=== PATIENT | female | born 1965 | race African-American/Black ===

== ENCOUNTER 2017-10-21 13:33 | Emergency (ER) | payer MEDICAID ==
[~2017-10-21] VITALS: Ht 165.1 cm; Wt 98.0 kg
[~2017-10-21 13:33] MED LIST: ASCO500C15; BISA5TAB; DOCU-138; FERR1TAB51; OMEP20CA4
[2017-10-21] MEDS ORDERED: KETOROLAC 60MG/2ML VIAL IM ONE (16:30)
[2017-10-21 17:20] VITALS: BP 147/78
== END 2017-10-21 17:30 | disposition home or self-care (01) ==
LOC: ER 15:25
DX: G89.29 Other chronic pain (principal); M25.511 Pain in right shoulder; M25.512 Pain in left shoulder
CPT/HCPCS: 96372; 99283; J1885

== ENCOUNTER 2022-05-02 22:08 | Emergency (ER) | payer MEDICAID ==
[~2022-05-02] VITALS: Ht 165.1 cm; Wt 80.8 kg
[2022-05-03 00:44] LABS: BASOPHILS % 0.7 % (0.0-2.0); EOSINOPHILS % 2.9 % (0.0-5.0); HEMATOCRIT. 34.6 % (36.0-48.0); HEMOGLOBIN. 11.5 g/dL (12.0-16.0); LYMPHOCYTES % 31.8 % (20.0-50.0); MEAN CORPUSCULAR VOLUME 90.2 fL (81.0-99.0); MEAN PLATELET VOLUME 8.3 fl (7.4-10.4); MONOCYTES % 6.1 % (2.0-8.0); NEUTROPHILS % 58.5 % (40.0-76.0); PLATELET 203 x1000/uL (130-400); RED BLOOD CELL COUNT 3.84 mill/uL (4.2-5.4); RED CELL DISTRIBUTION WIDTH 13.5 % (11.6-14.6)
[2022-05-03 01:00] LABS: CHLORIDE 110 mEq/L (98-107)
[2022-05-03] MEDS ORDERED: GABA300C MT (01:14)
[2022-05-03 02:58] VITALS: BP 112/75
== END 2022-05-03 02:58 | disposition home or self-care (01) ==
LOC: ER 22:08
DX: G62.9 Polyneuropathy, unspecified (principal)
CPT/HCPCS: 36415; 80048; 85025; 99283